=== PATIENT | female | born 1950 | race Caucasian/White ===

== ENCOUNTER 2020-11-04 23:03 | Observation (INO) | payer MEDICARE, OTHER ==
[~2020-11-04] VITALS: Ht 167.6 cm; Wt 77.9 kg
[~2020-11-04 23:03] MED LIST: ACET325 PO; AMLO10 PO; ASPIR 8181 M1 PO; FAMO40 PO; FENO160 PO; GLIP5 PO; HYDACE10B PO; HYDR1TAB94 PO; LIDOCAINE1 EAC1 TOP; LISI20 PO; METF500 PO; SENN187 PO; TRAZ100 PO; TRIA50 PO; ZOCOR20 MG PO
[2020-11-05 01:57] LABS: BASOPHILS ABSOLUTE AUTO 0.03 K/mm3 (0.00-0.23); BASOPHILS PERCENT AUTO 0 % (0-2); EOSINOPHILS ABSOLUTE AUTO 0.07 K/mm3 (0.00-0.68); EOSINOPHILS PERCENT AUTO 1 % (0-6); Hematocrit 35.2 % (33.0-51.0); Hemoglobin 11.7 g/dL (11.5-16.0); IMMATURE GRAN ABSOLUTE AUTO 0.07 K/mm3 (0.00-0.10); IMMATURE GRAN PERCENT AUTO 1 % (0-1); LYMPHOCYTES ABSOLUTE AUTO 2.19 K/mm3 (0.84-5.20); LYMPHOCYTES PERCENT AUTO 21 % (21-46); MONOCYTES ABSOLUTE AUTO 0.67 K/mm3 (0.16-1.47); MONOCYTES PERCENT AUTO 6 % (4-13); Mean Corpuscular HGB 28.7 pg (26.0-34.0); Mean Corpuscular HGB Conc 33.2 g/dL (31.5-36.5); Mean Corpuscular Volume 87 fL (80-100); Mean Platelet Volume 9.1 fL (9.1-12.4); NEUTROPHILS ABSOLUTE AUTO 7.56 K/mm3 (1.96-9.15); NEUTROPHILS PERCENT AUTO 71 % (41-73); Platelet Count 287 K/mm3 (150-400); RDW Coefficient Variation 14.3 % (11.7-14.2); RDW Standard Deviation 45.2 fL (35.1-46.3); Red Blood Cell Count 4.07 M/mm3 (3.80-5.20); White Blood Cell Count 10.59 K/mm3 (4.00-11.30)
[2020-11-05 02:05] LABS: Alanine Aminotransfer (ALT/SGP 31 U/L (12-78); Albumin, Blood 3.9 g/dL (3.4-5.0); Albumin/Globulin Ratio 1.1 (0.8-1.8); Alk Phos 53 U/L (50-136); Anion Gap 11 mmol/L (6-16); Aspartate Aminotrans (AST/SGOT 34 U/L (12-37); Bilirubin, Total 0.7 mg/dL (0.1-1.0); Blood Urea Nitrogen 25 mg/dL (8-24); Bun/Creatinine Ratio 51.7 (12.0-20.0); CO2, Blood 23 mmol/L (21-32); Calcium, Blood 9.5 mg/dL (8.5-10.1); Chloride, Blood 100 mmol/L (98-108); Creatinine, Blood 0.48 mg/dL (0.40-1.00); Globulin, Blood 3.4 g/dL (2.2-4.0); Glomerular Filtration Rate >60 (60-); Glucose, Blood 257 mg/dL (70-99); Potassium, Blood 3.6 mmol/L (3.5-5.5); Sodium, Blood 134 mmol/L (136-145); Total Protein, Blood 7.3 g/dL (6.4-8.2)
--- NOTE | 2020-11-05 03:39 | NUR ---
ADMIT NOTE PT ARRIVED TO PCU FROM ED IN ED WHEELCHAIR AT APPROX 0230. THE PT AMBULATED W/ MINIMAL ASSISTANCE FROM ED WHEELCHAIR TO PCU BED, THOUGH NEEDED ASSISTANCE LIFTING LEGS ONTO BED. PT IS ALERT, ORIENTED TO SELF AND FAMILY. KNEW SHE WAS IN [place] BUT COULD NOT RECALL THE CITY. SP02>92% ON RA. PT MEDICAL STATUS. VSS. PT C/O OF 12/10 L ROTATOR CUFF PAIN. STATES SHE JUST MOVED FROM [place] AND PT STATES "[facility] OUT OF THE SURGERY." SHE IS NOW WANTING THE SURGERY. MEDICATED WITH TORADOL PER EMAR AND PLACED COOLING PAD UNDER SHOULDER. PT CURRENTLY SLEEPING IN ROOM. PT STATES OCCASIONAL INCONTINENCE, C/D ATTENDS IN PLACE. PT ORIENTED TO ROOM, CALL LIGHT IN REACH.
[2020-11-05 05:27] LABS: Source, Urine Clean Catch
[2020-11-05 05:31] LABS: Appearance, Urine Clear (Clear); Bilirubin, Urine Neg (Neg); Blood, Urine Neg (Neg); Color, Urine Yellow (P-Yellow); Glucose Qualitative, Urine 3+ (Neg); Ketones, Urine 2+ (Neg); Leukocyte Esterase, Urine Neg (Neg); Nitrite, Urine Neg (Neg); Protein, Urine 1+ (Neg); Specific Gravity, Urine 1.015 (1.003-1.022); Urobilinogen, Urine NORM (Normal)
[2020-11-05 06:04] LABS: U Amphetamine Screen Not Detected; U Barbituate Screen Not Detected; U Benzodiazapine Screen Not Detected; U Buprenorphine Screen Not Detected; U Cannabinoids Screen Not Detected; U Cocaine Screen Not Detected; U Methadone Screen Not Detected; U Methamphetamine Screen Not Detected; U Opiates Screen DETECTED; U Oxycodone Screen Not Detected; U Phencyclidine Screen Not Detected; U Propoxyphene Screen Not Detected
--- NOTE | 2020-11-05 06:25 | NUR ---
SHIFT SUMMARY PT ALERT, ORIENTED TO SELF.PT CONFUSED. PT DOES NOT FOLLOW DIRECTIONS THE FIRST TIME, TAKES MULTIPLE REPEATING FOR PT TO FOLLOW DIRECTIONS. PT UNSURE OF WHERE SHE WAS, ONLY COULD STATE "[place]". VSS. SP02>92% ON RA. TELEMETRY READS SR W/ BBB, HR 70'S-100'S. PT DID AMBULATE WITH 3 PERSON ASSIST TO BSC TO VOID. PT C/O 12/10 L SHOULDER PAIN. MEDICATED W/ TORADOL PER EMAR. PT ATTEMPTED TO CLIMB OUT OF BED MULTIPLE TIMES WITHOUT TAKING REDIRECTION. CALL PLACED TO MD HICKS. MD HICKS WITH ORDER FOR PEYTON VEST. VEST APPLIED TO PT AT APPROX 0530 FOR PT'S SAFETY. AT APPROX 0630, PT PULLED OUT HER IV AND TOOK OFF HER TELEMETRY BOX/STICKERS. FULL LINEN CHANGE, NEW TELEMETRY STICKERS REAPPLIED. EDUCATED PT WHY SHE NEEDS THESE THINGS AND HOW WE ARE TRYING TO HELP HER AND KEEP HER SAFE. PT CALLED STAFF "RUDE" AND IS AGITATED. CALL LIGHT IN REACH. WILL GIVE REPORT TO ONCOMING NURSE.
--- NOTE | 2020-11-05 07:30 | NUR ---
pt: refusung staying bed refusing keep depends on confused
--- NOTE | 2020-11-05 09:41 | NUR ---
PT GAVE TRANSFORMATION ANALYST PERMISSION FOR CARE ON 11/05/20 AT 0700
--- NOTE | 2020-11-05 18:26 | NUR ---
SHIFT NOTE PT HAS REMAINED IN VEST T/O THE DAY. PT IS ALERT, ANSWERS MOST QUESTIONS APPROPRIATELY BUT QUICKLY FORGETS HER LIMITATIONS AND BECOMES DISORIENTED AND BEGINS ATTEMPTING TO CLIMB OUT OF BED. PT DID HAVE SOME HALLUCINATIONS TODAY FOR A BRIEF PERIOD, PER FAMILY PT DOES HAVE HX OF THIS. PT HAS BEEN PLEASANTLY CONFUSED TODAY.
--- NOTE | 2020-11-06 05:26 | NUR ---
SHIFT SUMMARY XFER'D FROM [facility] @ 5230, REPORT REC FROM PASCUAL AVILA, NO ACUTE CHANGES SINCE ASSUMING CARE, PT SLEPT OFF/ON T/O SHIFT OFTEN MOANING/YELLING OUT "HELP ME" STATES THAT SHE IS PAINFUL- LOCATION CHANGES EVERY TIME PT IS ASKED- HAS STATED L SHOULDER BUT THEN POINTS TO NECK, CHEST, L ABD, BACK, AND "EVERYWHERE"; HAS BEEN INCONT T/O SHIFT REPEATEDLY DISROBING AND THROWING LINNENS OFF BED EVEN WHILE IN PEYTON & SOFT WRISTS, FREQ REPOSITIONS T/O SHIFT, KPAD UNDER BACK, SLEEPING AT THIS TIME, CALL LIGHT IN REACH WHICH PT IS UNABLE TO USE APPROPIATELY, WILL CONT TO MONITOR UNTIL REPORT GIVEN TO DAY RN.
--- NOTE | 2020-11-06 20:03 | NUR ---
ASSUMED CARE RECEIVED REPORT FROM PASCUAL HENRIQUEZ. PT MOVING AROUND IN BED, ATTEMPTING TO CLIMB OUT OF PEYTON VEST. ADJUSTED TO APPROPRIATE POSITION, PT BOOSTED IN BED WITH 2 ASSIST. NO ACUTE NEEDS OR DISTRESS NOTED AT THIS TIME. CALL LIGHT IN REACH. REMOTE MONITORING VERIFIED WITH RUCHI. CONTINUE TO MONITOR.
--- NOTE | 2020-11-06 20:18 | NUR ---
SPOKE TO GAYATRI WREN REGARDING PT'S CONTINUED AGITATION AND ATTEMPTS TO EXIT BED. ORDERS FOR RESTRAINTS RENEWED. WILL CONTINUE TO MONITOR PT BEHAVIOR.
--- NOTE | 2020-11-06 20:28 | NUR ---
SHIFT SUMMARY- PT HAS SCREAMED AND CALLED OUT ALL SHIFT FROM START TO FINISH WITH ABOUT A 1.5 HOUR NAP AFTER SOME PO ATIVAN THIS EVENING. SOON HER SON LEFT SHE BEGAN SCREAMING AND CALLING OUT AGAIN. PT IV AND TELE DC'D EARLIER TODAY AND THE LEFT WRIS RESTRAINT WAS ABL TO BE DC'D. DR AWARE PT RIGHT WRIST RESRAINT HAS TO REMAIN SHE USES IT TO GET OUT OF THE PEYTON VEST. PT ORIENTED T HER NAME AND FAMILY. PASSED ON IN REPORT TO NIGHT PASCUAL MIRANDA IN BEDSIDE REPORT.
--- NOTE | 2020-11-07 04:26 | NUR ---
SHIFT SUMMARY PT LYING IN BED, MOANING AND CRYING OUT INTERMITTENTLY. HAS BEEN MONITORED EVERY 1-2 HOURS WITH NEEDS MET. MEDICATED FOR AGITATION PER EMAR, PT APPEARED TO BE ABLE TO SLEEP FOR A FEW HOURS AFTERWARDS. PAIN MANAGED WITH MEDS, SCHEDULED AND PRN, WITH MODERATE RELIEF. VS REVIEWED, WNL. RESTRAINTS IN PLACE ORDERED. NO ACUTE NEEDS NOTED AT THIS TIME. CALL LIGHT, POSSESSIONS IN REACH, BED IN LOW POSITION. WILL CONTINUE TO MONITOR UNTIL REPORT GIVEN TO DAY RN.
--- NOTE | 2020-11-07 16:26 | NUR ---
SHIFT SUMMARY PT YELLING OUT AT START OF SHIFT, WITH EYES CLOSED. PT IN PEYTON VEST RESTRAINT FOR SAFETY. PT ALSO INCONTINENT OF BOWEL AND BLADDER. MULTIPLE BED CHANGES DONE TO PRESENT JUST THIS SHIFT. PT REFUSING TO WEAR ANY CLOTHES, ATTENDS, OR PULL UPS AT ALL. IMMEDIATELY PULLS THEM OFF AND ANY LINEN PLACED UNDER HER WELL. PT ABLE TO TAKE MEDICATIONS AND EAT HER MEALS W/O DIFFICULTY, EVEN WITH EYES CLOSED. PT DID OPEN HER EYES BRIEFLY TO WORDS FROM HER SON, WHEN HE WAS IN RM TALKING TO HER. ATIVAN GIVEN THIS AM FOR RESTLESSNESS AND AGITATION. PT ABLE TO REST FOR A WHILE, BUT HAS BEEN RESTLESS AND AGITATED AGAIN THIS AFTERNOON. PT'S SON REQUESTING PT BE GIVEN MORE ATIVAN IF AVAILABLE. TYLENOL ALSO GIVEN FOR L SHOULDER PAIN. PT REPOSITIONED AND SON SITTING IN RM AT BS. CALL LT IN REACH.
--- NOTE | 2020-11-07 19:05 | NUR ---
ASSUMED CARE REPORT RECEIVED FROM PASCUAL TALLEY. PT RESTING IN BED, MOANING OCCASIONALLY. NO ACUTE NEEDS OR DISTRESS NOTED AT THIS TIME. CALL LIGHT, POSSESSIONS IN REACH, BED IN LOW POSITION. CONTINUE TO MONITOR.
--- NOTE | 2020-11-08 05:05 | NUR ---
SHIFT SUMMARY PT LYING IN BED, NO S/S ACUTE DISTRESS NOTED. WAS MONITORED EVERY 1-2 HOURS WITH NEEDS MET. PAIN MANAGED WITH MEDS PER EMAR. CONTINUES TO MOAN INTERMITTENTLY, CRYING OUT OCCASIONALLY; ALERT TO SELF. CONTINUES TO REMOVE CHUX PADS BENEATH HER. VS REVIEWED, WNL, BP'S STABLE. LT SHOULDER GUARDING NOTED AT TIMES, BUT PT ABLE TO MOVE LUE. NO ACUTE NEEDS ASSESSED AT THIS TIME. PT CONTINUES ON REMOTE MONITORING. BED IN LOW POSITION, WILL CONTINUE TO MONITOR UNTIL REPORT GIVEN TO DAY RN.
--- NOTE | 2020-11-08 18:17 | NUR ---
SHIFT SUMMARY PT SLEEPING AT START OF SHIFT, RESTING CALMLY. PT NOT WANTING TO EAT MUCH OF HER BREAKFAST AT ALL TODAY. PT MORE DROWSY. PT DID EAT A LITTLE MORE OF LUNCH AND ALL OF DINNER. PT YELLING OUT ALOT MORE THOUGH TODAY. INCONTINENT OF BOWEL AND BLADDER AGAIN MULTIPLE TIMES. COMPLETE BED CHANGES EVERY TIME THRU OUT THE DAY. PT ABLE TO UNTIE VEST RESTRAINTS A COUPLE OF TIMES AND GET TO EOB WITH FEET ON FLOOR. PT CONTINUES TO KEEP HER EYES MOSTLY CLOSED AT ALL TIMES. OPENS THEM ONLY FOR A BREIF MOMENT AND ONLY A COUPLE OF TIMES THE ENTIRE SHIFT. PT WILL ANS A YES/NO QUESTION ONCE IN A WHILE, BUT OTHERWISE DOES NOT COMMUNICATE. PT'S SON TO RM TO VISIT AGAIN TODAY. PT WAKES BRIEFLY TO ACKNOWLGE SON TALKING TO HER, BUT DOES NOT TALK TO HIM EITHER. VSS; SEE CHART. DR LAWRENCE HERE TO SEE PT THIS AM. INSULIN COVERAGE ADJUSTED; SEE CHART. ALARM ON FOR SAFETY. CALL LT IN REACH.
--- NOTE | 2020-11-08 19:10 | NUR ---
ASSUMED CARE RECEIVED REPORT FROM PASCUAL TALLEY. PT LYING IN BED, RT ARM TANGLED UP IN PEYTON VEST, CRYING OUT. UNTANGLED RT ARM AND RE-TIED RT SIDE OF VEST. PT APPEARS MORE COMFORTABLE NOW, ALTHOUGH CONTINUES TO MOAN AND CRY OUT. NO OTHER ACUTE NEEDS ASSESSED AT THIS TIME. BED IN LOW POSITION, SR UP X4. CONTINUE TO MONITOR.
--- NOTE | 2020-11-09 04:16 | NUR ---
SHIFT SUMMARY PT ASLEEP AT THIS TIME, NO ACUTE NEEDS OR DISTRESS NOTED. WAS MONITORED EVERY 1-2 HOURS WITH NEEDS MET. INCREASINGLY ALERT, SPEAKING IN [place], NON-SENSICAL SENTENCES. CONTINUES TO MOAN OCCASIONALLY, RE-DIRECTABLE. PEYTON VEST REMAINS IN PLACE D/T PT ATTEMPTING TO EXIT BED. NO S/S PAIN. CALL LIGHT, POSSESSIONS IN REACH, BED IN LOW POSITION. CONTINUE TO MONITOR UNTIL REPORT GIVEN TO DAY RN.
[2020-11-09 16:22] LABS: Hematocrit 33.3 % (33.0-51.0); Hemoglobin 10.5 g/dL (11.5-16.0); Mean Corpuscular HGB 28.1 pg (26.0-34.0); Mean Corpuscular HGB Conc 31.5 g/dL (31.5-36.5); Mean Corpuscular Volume 89 fL (80-100); Mean Platelet Volume 9.6 fL (9.1-12.4); Platelet Count 259 K/mm3 (150-400); RDW Standard Deviation 48.7 fL (35.1-46.3); Red Blood Cell Count 3.74 M/mm3 (3.80-5.20); White Blood Cell Count 9.51 K/mm3 (4.00-11.30)
[2020-11-09 16:58] LABS: Albumin, Blood 3.3 g/dL (3.4-5.0); Anion Gap 10 mmol/L (6-16); Blood Urea Nitrogen 41 mg/dL (8-24); Bun/Creatinine Ratio 60.1 (12.0-20.0); CO2, Blood 21 mmol/L (21-32); Chloride, Blood 112 mmol/L (98-108); Creatinine, Blood 0.68 mg/dL (0.40-1.00); Glomerular Filtration Rate >60 (60-); Glucose, Blood 154 mg/dL (70-99); Phosphorus, Blood 3.3 mg/dL (2.5-4.9); Potassium, Blood 3.3 mmol/L (3.5-5.5); Sodium, Blood 143 mmol/L (136-145)
--- NOTE | 2020-11-09 19:20 | NUR ---
SHIFT SUMMARY PT IS AO TO SELF, BUT MORE TALKATIVE TODAY. PT MEDICATED FOR PAIN X1 PER EMAR. PT STILL CALLS OUT, DISROBES, AND TRIES TO GET OUT OF THE BED/CHAIR. POSY VEST AND SIDERAILS X4 CURRENTLY IN PLACE. PT UP IN CHAIR X1 THIS SHIFT. PT IS 2 PERSON ASSIST FOR TRANSFERS. PLAN IS TO DC [facility]. PT'S SON VISITED THIS DUNIA. PT ENCOURAGED TO HYDRATE DURING ROUNDS TODAY. PT CURRENTLY IN BED, CALL LIGHT IN REACH,ALARM ON WITH BED LOWERED.
--- NOTE | 2020-11-10 00:38 | NUR ---
PT RESTRAINTS DISCONTINUED PT RESTRAINTS AT 1999. PT WAS NOT ATTEMPTING TO GET OUT OF BED AND SHE IS NOT PULLING ON LINES.
--- NOTE | 2020-11-10 04:02 | NUR ---
SHIFT SUMMARY ASSUMED CARE OF PT AT 1900. PT IS ALERT AND ONLY ORIENTED TO SELF AND FAMILY. PT REQUESTED TO CALL SON DUE TO CONFUSION. PT ATTEMPTED TO GET OUT OF BED MULTPILES TIMES TO USE THE BATHROOM. PT HAD HARD STOOLS T/O THE NIGHT. PT WAS INCONTINENT AT TIMES. PT WAS INCONTIENT OF URINE T/O THE NIGHT. PT C/O PAIN IN HER SHOULDER T/O THE NIGHT. MEDICATIONS ON EMAR DID NOT RELEIVE PATIENTS PAIN. PT L ARM IS CONTRACTED. PT IS A 1P SBA TO BSC. HEART SOUNDS REGULAR, LUNG SOUNDS CLEAR. CALL LIGHT IN REACH, BED IN LOWEST POSTION, BED ALARM ON, CAMERA MONITORING.
[2020-11-10 05:34] LABS: Albumin, Blood 2.8 g/dL (3.4-5.0); Anion Gap 8 mmol/L (6-16); Blood Urea Nitrogen 29 mg/dL (8-24); Bun/Creatinine Ratio 55.8 (12.0-20.0); CO2, Blood 22 mmol/L (21-32); Chloride, Blood 111 mmol/L (98-108); Creatinine, Blood 0.52 mg/dL (0.40-1.00); Glomerular Filtration Rate >60 (60-); Glucose, Blood 171 mg/dL (70-99); Phosphorus, Blood 2.7 mg/dL (2.5-4.9); Potassium, Blood 3.4 mmol/L (3.5-5.5); Sodium, Blood 141 mmol/L (136-145)
--- NOTE | 2020-11-10 17:26 | NUR ---
SHIFT SUMMARY PATIENT MEDICATD SCHEDULED FOR PAIN. DENIES NAUSEA AND SHORTNESS OF BREATH. UP SBA TO BSC. EATING AND DRINKING WELL THIS AFTERNOON. SON VISITED IN AFTERNOON. PATIENT HAD SEVERAL STOOLS THIS SHIFT. MUCH MORE ALERT THIS AFTERNOON THAN IN THE AM.
--- NOTE | 2020-11-10 21:08 | NUR ---
PT SHOWING CONFUSION, NURSE NOTIFIED
[2020-11-11] MEDS ORDERED: ESCI10 PO (04:00)
[2020-11-11] MEDS ORDERED: Flonase 0.05% N16 GM (04:00)
[2020-11-11] MEDS ORDERED: Dyazide 37.5/251 EA PO (04:02)
[2020-11-11 05:12] LABS: Albumin, Blood 2.9 g/dL (3.4-5.0); Anion Gap 8 mmol/L (6-16); Blood Urea Nitrogen 14 mg/dL (8-24); Bun/Creatinine Ratio 30.6 (12.0-20.0); CO2, Blood 21 mmol/L (21-32); Calcium, Blood 7.9 mg/dL (8.5-10.1); Chloride, Blood 118 mmol/L (98-108); Creatinine, Blood 0.46 mg/dL (0.40-1.00); Glomerular Filtration Rate >60 (60-); Glucose, Blood 118 mg/dL (70-99); Phosphorus, Blood 2.1 mg/dL (2.5-4.9); Potassium, Blood 3.6 mmol/L (3.5-5.5); Sodium, Blood 147 mmol/L (136-145)
--- NOTE | 2020-11-11 06:31 | NUR ---
SHIFT SUMMARY PT IS A 69 Y/O FEMALE, ADMITTED FOR ACUTE ENCEPHALOPATHY. SHE IS A&O X SELF ONLY, WITH MILD NONSENSICAL SPEECH WHILE ON SEDITATIVE MEDICATIONS. PT IS CONTINENT/INCONTINENT, 1PA TO THE BSC. PT HAD MULTIPLE EPISODES OF INCONTINENT URINE DURING THE NIGHT. PT RECEIVED NS + K @ 125 ML/HR UNTIL APPROXIMATELY 0530, WHEN PT'S IV WAS ACCIDENTALLY REMOVED. UNABLE TO REPLACE IT AT THIS TIME, WILL PASS ON TO DAY SHIFT. VITAL SIGNS STABLE. PT DID MOAN AND CRY OUT AT TIMES WHEN WET, AND C/O PAIN IN HER L SHOULDER WITH LLE MOVEMENT. NO C/O NAUSEA OR SOB. NO OTHER ACUTE CHANGES IN PT CONDITION NOTED. WILL CONTINUE TO MONITOR AND TREAT PER EMAR UNTIL HAND OFF TO DAY SHIFT RN.
--- NOTE | 2020-11-11 18:13 | NUR ---
SHIFT SUMMARY MEDICATED X2 FOR PAIN AND X1 FOR ANXIETY DURING MRI. DENIES NAUSEA AND SHORTNESS OF BREATH. UP SBA TO 1X TO BATHROOM. PATIENT REPORTS LEG CRAMPS AND BURNING WITH URINATION DURING THIS SHIFT. PATIENT PLEASANTLY CONFUSED, VERY IMPULSIVE AND CLIMBS OUT OF BED FREQUENTLY. MRI OF SHOULDER UNABLE TO BE COMPLETED BECAUSE PATIENT ATTEMPTED TO CLIMB OUT OF MRI MACHINE DURING SCAN. PATIENT EATING AND DRINKING WELL. SON MONCHO VISITED IN AFTERNOON.
--- NOTE | 2020-11-11 21:39 | NUR ---
1934 PT NOTED TO BE JUMPING OUT OOB NUMEROUS TIMES X 4; PT HAS DIFFICULTY FOLLOWING REDIRECTIONS; PT IS ON REMOTE CAMERA. ALERT X 1 ONLY. 2044 PTS BED CHANGED BED ALARM CONSTANLY ALARMED; PTS OLD BED WAS ICU SPECIALITY BED. 2136 DR RICE NOTIFIED PT CONTINUING JUMP OOB GAIT VERY UNSTEADY; PT ALERT X 1 ONLY; PEYTON VEST APPLIED.
--- NOTE | 2020-11-12 03:22 | NUR ---
SHIFT SUMMARY: 69 Y/O FEMALE HAD VERY RESTLESS NIGHT ALL SHIFT WITH MINIMAL SLEEP NOTED; PT ATTEMPTED CLIMB OOB NUMEROUS TIMES AND WAS UNABLE FOLLOW ANY DIRECTIONS FROM STAFF; PT REQUIRED PEYTON VEST FOR SAFETY; PT WAS GIVEN SEROQUEL 25MG PO, ATIVAN 1MG PO AND ZYPREXA 5MG PO WITH MINIMAL EFFECT EXCEPT MAKE PATIENT SLIGHTLY DROWSY; PT IS ALERT TO PERSON ONLY WITH SPEECH SLURRED; PT C/O LEFT ARM DISCOMFORT AT TIMES WITH TYLENOL 325MG PO GIVEN WITH SLIGHT RELIEF NOTED; PT ALSO HAD HEATING PAD APPLIED TO LEFT SHOULDER/BACK WHICH SHE REPEATLY REMOVED AND TOSSED ONTO FLOOR; PT ON REMOTE CAMERA OBSERVATION, BED ALARM APPLIED FOR SAFETY, BED LOW POSITION WITH CALL LIGHT AT SIDE.
[2020-11-12 08:29] LABS: BASOPHILS ABSOLUTE AUTO 0.03 K/mm3 (0.00-0.23); BASOPHILS PERCENT AUTO 0 % (0-2); EOSINOPHILS ABSOLUTE AUTO 0.22 K/mm3 (0.00-0.68); EOSINOPHILS PERCENT AUTO 3 % (0-6); Hematocrit 33.6 % (33.0-51.0); Hemoglobin 10.9 g/dL (11.5-16.0); IMMATURE GRAN ABSOLUTE AUTO 0.04 K/mm3 (0.00-0.10); IMMATURE GRAN PERCENT AUTO 1 % (0-1); LYMPHOCYTES ABSOLUTE AUTO 2.39 K/mm3 (0.84-5.20); LYMPHOCYTES PERCENT AUTO 31 % (21-46); MONOCYTES ABSOLUTE AUTO 0.59 K/mm3 (0.16-1.47); MONOCYTES PERCENT AUTO 8 % (4-13); Mean Corpuscular HGB 28.6 pg (26.0-34.0); Mean Corpuscular HGB Conc 32.4 g/dL (31.5-36.5); Mean Corpuscular Volume 88 fL (80-100); Mean Platelet Volume 9.1 fL (9.1-12.4); NEUTROPHILS ABSOLUTE AUTO 4.37 K/mm3 (1.96-9.15); NEUTROPHILS PERCENT AUTO 57 % (41-73); Platelet Count 319 K/mm3 (150-400); RDW Coefficient Variation 14.6 % (11.7-14.2); RDW Standard Deviation 46.9 fL (35.1-46.3); Red Blood Cell Count 3.81 M/mm3 (3.80-5.20); White Blood Cell Count 7.64 K/mm3 (4.00-11.30)
[2020-11-12 08:59] LABS: Alanine Aminotransfer (ALT/SGP 43 U/L (12-78); Albumin, Blood 3.1 g/dL (3.4-5.0); Albumin/Globulin Ratio 0.9 (0.8-1.8); Alk Phos 53 U/L (50-136); Anion Gap 9 mmol/L (6-16); Aspartate Aminotrans (AST/SGOT 34 U/L (12-37); Bilirubin, Total 0.5 mg/dL (0.1-1.0); Blood Urea Nitrogen 10 mg/dL (8-24); Bun/Creatinine Ratio 21.5 (12.0-20.0); CO2, Blood 23 mmol/L (21-32); Calcium, Blood 8.9 mg/dL (8.5-10.1); Chloride, Blood 113 mmol/L (98-108); Creatinine, Blood 0.47 mg/dL (0.40-1.00); Globulin, Blood 3.4 g/dL (2.2-4.0); Glomerular Filtration Rate >60 (60-); Glucose, Blood 157 mg/dL (70-99); Magnesium, Blood 1.7 mg/dL (1.6-2.4); Phosphorus, Blood 3.2 mg/dL (2.5-4.9); Potassium, Blood 3.6 mmol/L (3.5-5.5); Sodium, Blood 145 mmol/L (136-145); Thyroid Stimulating Hormone 0.596 uIU/mL (0.360-4.800); Total Protein, Blood 6.5 g/dL (6.4-8.2)
[2020-11-12 12:17] LABS: Appearance, Urine Cloudy (Clear); Bilirubin, Urine Neg (Neg); Blood, Urine 1+ (Neg); Color, Urine Yellow (P-Yellow); Glucose Qualitative, Urine 4+ (Neg); Ketones, Urine 1+ (Neg); Leukocyte Esterase, Urine 2+ (Neg); Nitrite, Urine Neg (Neg); Protein, Urine 1+ (Neg); Source, Urine Clean Catch; Urobilinogen, Urine 1+ (Normal)
[2020-11-12 12:30] LABS: Bacteria Many /hpf; Squamous Epithelial Cells Not Seen /hpf (Few)
--- NOTE | 2020-11-12 17:45 | NUR ---
SHIFT SUMMARY URINE COLLECTED VIA STRAIGHT CATH DUE TO INCONTINENCE. PT WAS ABLE TO BE CONT ONCE THIS AFTERNOON AFTER WALKING TO THE TOILET. AMBULATING WELL WITH MODERATE ASSIST. 1-2P REQUIRED. MRI COMPLETED THIS SHIFT. ONE TIME DOSE OF ATIVAN GIVEN TO HELP WITH CLASTROPHOBIA. PT GAURDING L ARM T/O SHIFT. MEDICATED FOR PAIN TWICE TODAY. ABCESS ON R GRION FOLD CULTURED. PURLENT FLUID DRAINAGE & OPENING NOW CRUSTED OVER. PICTURE TAKEN. PT VERY CONFUSED T/O MOST THIS DAY. MOMENTS OF CLEARITY. VS REVIEWED. NO OTHER ACUTE CHANGES IN ASSESSMENT AT THIS TIME.
--- NOTE | 2020-11-12 21:04 | NUR ---
2000 PT SITTING UP IN CHAIR WITH PEYTON VEST INTACT; PT ALERT AND ORIENTED X 1 WITH THOUGHT PROCESS DISORGANIZED AND MUMBLING INCOHERENTLY TO SELF DURING ASSESSMENT.
--- NOTE | 2020-11-13 03:27 | NUR ---
SHIFT SUMMARY: 69 Y/O [place] FEMALE SLEPT BEDSIDE CHAIR ENTIRE SHIFT FOR COMFORT (PT DECLINED TO SLEEP IN BED WHEN OFFERED MULTIPLE TIMES BY STAFF); PT ALERT TO SELF ONLY WITH DISORGANIZED THOUGHT PROCESS NOTED WITH INCOHERENT MUMBLING WORDS TO SELF AT TIMES; PT WAS GIVEN ZYPREXA 5MG AND ATIVAN 1MG PO WHICH HELPED PT TO CONTROL HER EMOTIONS WITH NO YELLING OUTBURSTS NOTED THIS SHIFT; PT WAS ALSO GIVEN TYLENOL 650MG PO FOR LEFT SHOULDER DISCOMFORT AFTER GRIMACING NOTED PRIOR TO MEDICATION BEING GIVEN; PEYTON VEST MAINTAINED FOR SAFETY; CHAIR ALARM APPLIED WITH CALL LIGHT AT SIDE.
--- NOTE | 2020-11-13 17:02 | NUR ---
SHIFT SUMMARY PT TAKEN OUT OF RESTRAINTS AT 0954 TODAY. PT CONTINUES TO BE IMPULSIVE AND FORGETS TO CALL WHEN TRANSFERING. HOWEVER, CHAIR & BED ALARMS ARE SUFFICIENT FOR SAFETY AT THIS TIME. PT SEEN BY [facility]O FOR HER L SHOULDER. ULTRASOUND OF THE JOINT ORDERED FOR BETTER VIEW. PHYSICAL THERAPY CONTINUES TO WORK WITH PT ON GENERAL MOBILITY AND SPECIFICALLY THE L SHOULDER. PT EATING WELL & TAKING IN FLUIDS. TREATED WITH ABX ORDERED T/O DAY. PT VISITED WITH HER SON IN ROOM FOR A FEW HOURS THIS AFTERNOON. PT CURRENTLY UP IN RECLINER, SLEEPING. RECLINER SEEMS TO BE THE MOST COMFORTABLE TO THE PT. NO OTHER ACUTE CHANGES IN ASSESSMENT AT THIS TIME. VS REVIEWED. CALL LIGHT IN REACH.
--- NOTE | 2020-11-13 19:40 | NUR ---
PT UP WANDERING AROUND ZARATE WITH GAIT VERY UNSTEADY WITHOUT WALKER REFUSING TO SIT DOWN SHE VOICED ITS TIME FOR HER DEPART [facility] VIA PLANE; PT ESCORTED BACK TO BED AND PLACED IN PEYTON VEST FOR SAFETY; DR HICKS NOTIFIED WITH ORDERS FOR PEYTON VEST.
--- NOTE | 2020-11-14 03:34 | NUR ---
SHIFT SUMMARY: 69 Y/O FEMALE HAD RESTLESS NIGHT ALL SHIFT; PT REQUIRED PEYTON VEST AT BEGINNING SHIFT STAFF WAS UNABLE TO REDIRECT PT SHE WAS UP AMBULATING AROUND IN HALLWAY WITH GAIT VERY UNSTEADY WITHOUT WALKER; PT ALERT AND ORIENTED X 1, ABLE TO FOLLOW SIMPLE VERBAL COMMANDS; PT C/O LEFT ARM PAIN 05/08 WITH TYLENOL 500MG AND 650MG PO X 1 GIVEN WITH RELIEF FELT; PT CONTINUES TO BE INCONTIENT AND CONTINENT URINE THROUGHOUT SHIFT; PT OVERALL IS CALM AND NEVER COMBATIVE WITH STAFF; PTS BED/CHAIR ALARM APPLIED, BED LOW POSITION WITH CALL LIGHT AT SIDE.
[2020-11-14 05:11] LABS: Hematocrit 31.7 % (33.0-51.0); Hemoglobin 9.8 g/dL (11.5-16.0); Mean Corpuscular HGB 27.8 pg (26.0-34.0); Mean Corpuscular HGB Conc 30.9 g/dL (31.5-36.5); Mean Corpuscular Volume 90 fL (80-100); Mean Platelet Volume 9.3 fL (9.1-12.4); Platelet Count 361 K/mm3 (150-400); Red Blood Cell Count 3.52 M/mm3 (3.80-5.20); White Blood Cell Count 6.66 K/mm3 (4.00-11.30)
[2020-11-14 05:31] LABS: Albumin, Blood 3.1 g/dL (3.4-5.0); Anion Gap 5 mmol/L (6-16); Blood Urea Nitrogen 19 mg/dL (8-24); Bun/Creatinine Ratio 31.5 (12.0-20.0); CO2, Blood 26 mmol/L (21-32); Calcium, Blood 8.6 mg/dL (8.5-10.1); Chloride, Blood 112 mmol/L (98-108); Glomerular Filtration Rate >60 (60-); Glucose, Blood 186 mg/dL (70-99); Phosphorus, Blood 3.3 mg/dL (2.5-4.9); Sodium, Blood 143 mmol/L (136-145)
--- NOTE | 2020-11-14 18:42 | NUR ---
SHIFT SUMMARY PT UP IN CHAIR MOST OF THE DAY. RESTRAINTS REMOVED THIS MORNING AT 0800. HAS GOTTEN UP SEVERAL TIMES THROUGHOUT DAY AND ALARMS HAVE BEEN SET OFF BUT HAS BEEN REDIRECTABLE AND COOPERATIVE. ALSO IN HALLWAY IN HER CHAIR WITH STAFF. SON CAME TO VISIT THIS AFTERNOON AND PT TOOK A SHORT NAP.
--- NOTE | 2020-11-15 03:27 | NUR ---
PATIENT IS PLEASANT HOWEVER CONFUSED AND DISORIENTED. SHE OCCASIONALLY IS NOTED PICKING AT SOMETHING/THINGS THAT ARE NOT PRESENT. SHE HAS BEEN UP SEVERAL TIMES TONIGHT, GETTING OUT OF BED ON HER OWN AND HAVING NO DIRECTION MOST OF THE TIMES. THIS LAST TIME SHE DID ASK FOR SOME PAIN MEDICATION SO I DID GIVE HER PRN TYLENOL PER EMAR. I ALSO ADMINISTERED SOME ZYPREXA TO SEE IF IT WILL ASSIST WITH PROVIDING A LESS RESTLESS NIGHT. BP WAS ELEVATED WITH MOST RECENT VITALS CHECK, BUT SHE WAS ALSO IN PAIN AT THIS TIME. PATIENT LAID BACK DOWN AFTER TAKING HER MEDICATION. CALL LIGHT WITHIN REACH.
--- NOTE | 2020-11-15 07:31 | NUR ---
ABSCESS SITE TO R GROIN APPEARS TO BE HEALING WELL. NO REDNESS OR SWELLING AT SITE. NO PAIN AT SITE.
--- NOTE | 2020-11-15 17:37 | NUR ---
SHIFT SUMMARY PT COOPERATIVE THROUGH THE DAY. WOULD CALL APPROPRIATELY WHEN SON NOT IN ROOM. DRINKING FLUIDS WELL. SON HERE TO VISIT IN THE AFTERNOON. MENTATION IMPROVED OVER YESTERDAY.
--- NOTE | 2020-11-15 23:33 | NUR ---
PATIENT HAS NOT BEEN TO SLEEP AT ALL TONIGHT. SHE HAS BEEN UP WALKING AROUND HER ROOM. SHE HAS BEEN STEADY ON HER FEET, BUT REMAINS CONFUSED.
--- NOTE | 2020-11-16 03:30 | NUR ---
PATIENT IS PLEASANTLY CONFUSED. DOESN'T SLEEP MUCH AT ALL. AMBULATES PRETTY STEADILY. VITALS STABLE WITH SLIGHTLY ELEVATED BP. STARTED ON PO ABX WITHOUT S/SX OF ADVERSE REACTIONS NOTED OR REPORTED. PATIENT APPEARS TO BE ASLEEP IN HER BED AT THIS TIME. NO ACUTE CHANGES NOTED OR REPORTED THIS SHIFT. CALL LIGHT WITHIN REACH.
[2020-11-16 08:20] LABS: Hematocrit 31.6 % (33.0-51.0); Hemoglobin 9.7 g/dL (11.5-16.0); Mean Corpuscular HGB 28.4 pg (26.0-34.0); Mean Corpuscular HGB Conc 30.7 g/dL (31.5-36.5); Mean Corpuscular Volume 92 fL (80-100); Mean Platelet Volume 9.2 fL (9.1-12.4); Platelet Count 347 K/mm3 (150-400); RDW Coefficient Variation 15.2 % (11.7-14.2); RDW Standard Deviation 50.4 fL (35.1-46.3); Red Blood Cell Count 3.42 M/mm3 (3.80-5.20); White Blood Cell Count 6.25 K/mm3 (4.00-11.30)
[2020-11-16 08:38] LABS: Albumin, Blood 3.1 g/dL (3.4-5.0); Anion Gap 5 mmol/L (6-16); Blood Urea Nitrogen 19 mg/dL (8-24); Bun/Creatinine Ratio 30.7 (12.0-20.0); CO2, Blood 26 mmol/L (21-32); Calcium, Blood 8.6 mg/dL (8.5-10.1); Chloride, Blood 113 mmol/L (98-108); Creatinine, Blood 0.62 mg/dL (0.40-1.00); Glomerular Filtration Rate >60 (60-); Glucose, Blood 129 mg/dL (70-99); Phosphorus, Blood 3.6 mg/dL (2.5-4.9); Potassium, Blood 4.1 mmol/L (3.5-5.5); Sodium, Blood 144 mmol/L (136-145)
--- NOTE | 2020-11-16 19:15 | NUR ---
SHIFT SUMMARY: NO ACUTE CHANGES TO REPORT THIS SHIFT. PT A&O X2; CALM AND COOPERATIVE WITH CARE. SCHEDULED PAIN MEDS PER EMAR. REMOTE MONITORING STOPPED THIS SHIFT; PT SBA IN ROOM. EXPECTED D/C HOME WITH SON. REPORT GIVEN TO ONCOMING RN.
[2020-11-16 23:09] LABS: MMA - NORMALIZED 1.3 (0.5-3.4)
--- NOTE | 2020-11-17 05:26 | NUR ---
SHIFT SUMMARY NO ACUTE EVENTS THIS SHIFT. PT CALLS APPROPRIATELY, SBA WHEN UP. MEDICATED X1 WITH SCHEDULED TYLENOL, PT STATES SHE DOESN'T HAVE ANY PAIN. NO OTHER COMPLAINTS THIS SHIFT, SLEPT WELL T/O NIGHT. PT IS LAYING IN BED WITH EYES CLOSED, EVEN AND UNLABORED RESPIRATIONS. BED IN LOWERED POSITION WITH CALL LIGHT AND PERSONAL ITEMS WITH IN REACH. NO APPARENT NEEDS OR DISTRESS AT THIS TIME, WILL CONTINUE TO MONITOR UNTIL REPORT GIVEN TO DAY RN.
[2020-11-17 06:07] LABS: CHOL/HDL RATIO 2.1; Cholesterol 133 mg/dL (50-200); HDL Cholesterol 64 mg/dL (>39); LDL/HDL RATIO 0.6; Low Density Lipoprotein Chol 40 mg/dL (0-110); Triglycerides 145 mg/dL (30-160); Very Low Density Lipoprot Chol 29 mg/dL (6-32)
[2020-11-17] MEDS ORDERED: CITA20 PO (15:26)
[2020-11-17] MEDS ORDERED: CIPR500 PO (15:27)
[2020-11-17] MEDS ORDERED: LANTUS SOL100 UNIT/1 SC (15:29)
[2020-11-17] MEDS ORDERED: HUMALOG KW100 UNIT/1 (15:31)
[2020-11-17] MEDS ORDERED: LISI20 PO (15:31)
[2020-11-17] MEDS ORDERED: VISBIOME PROBI1 EACH PO (15:33)
[2020-11-17] MEDS ORDERED: QUET25 PO (15:33)
--- NOTE | 2020-11-17 16:32 | NUR ---
DISCHARGE NOTE PT DISCHARGED TO HOME WITH SON. PT AND SON EDUCATED ON ALL DISCHARGE INFORMATION, ALL QUESTIONS ANSWERED. NO IV PRESENT AT DISCHARGE, BELONINGS RETURNED. PT AND SON AGREE TO ESTABLISH PCP, TAKE MEDICATIONS PRESCRIBED. PT LEFT ROOM VIA WHEELCHAIR WITH PLY CUTTER ESCORT PRIOR TO THIS NOTE.
== END 2020-11-17 16:27 | disposition home health service (06) ==
LOC: ER 23:03 → MEDS 23:04 → PCU 23:04 → MEDS 11-05 22:46
PROVIDERS: Internal Medicine; Pharmacist; ADMIT Internal Medicine
DX: G92 Toxic encephalopathy (principal); G30.9 Alzheimer's disease, unspecified; F02.81 Dementia in other diseases classified elsewhere, unspecified severity, with behavioral disturbance; E86.0 Dehydration; S46.002A Unspecified injury of muscle(s) and tendon(s) of the rotator cuff of left shoulder, initial encounter; X58.XXXA Exposure to other specified factors, initial encounter; L02.214 Cutaneous abscess of groin; B95.2 Enterococcus as the cause of diseases classified elsewhere; R26.81 Unsteadiness on feet; I10 Essential (primary) hypertension; E11.65 Type 2 diabetes mellitus with hyperglycemia; Z23 Encounter for immunization; E78.5 Hyperlipidemia, unspecified; K21.9 Gastro-esophageal reflux disease without esophagitis; Z86.73 Personal history of transient ischemic attack (TIA), and cerebral infarction without residual deficits; Z91.018 Allergy to other foods; Z79.84 Long term (current) use of oral hypoglycemic drugs; Z79.899 Other long term (current) drug therapy; Z79.82 Long term (current) use of aspirin
CPT/HCPCS: 36415; 70450; 71045; 73030; 73223; 76882; 80053; 80061; 80069; 81001; 82140; 82550; 82553; 82607; 82746; 82947; 83036; 83090; 83735; 83921; 84100; 84443; 84484; 85025; 85027; 85651; 87070; 87075; 87077; 87086; 87186; 87205; 93005; 93010; 93306; 96365; 96366; 96367; 96372; 96374; 96375; 96376; 97110; 97110-CO; 97116; 97116-CQ; 97162; 97165; 97530; 97530-CQ; 97535; 97535-CO; 99284-25; 99285-25; A9270; A9579; C1751; G0008; G0378; J0360; J0696; J1650; J1815; J1885; J2060; J2405; J2543; J3010; J3301; J3370; J3480; J7030; J7050; J7060; Q2038

== ENCOUNTER 2020-11-25 09:21 | Emergency (ER) | payer MEDICARE, OTHER ==
[~2020-11-25] VITALS: Ht 167.6 cm; Wt 79.4 kg
[~2020-11-25 09:21] MED LIST changes: +CIPR500 PO; +CITA20 PO; +Dyazide 37.5/251 EA PO; +ESCI10 PO; +Flonase 0.05% N16 GM; +HUMALOG KW100 UNIT/1; +LANTUS SOL100 UNIT/1 SC; +QUET25 PO; +VISBIOME PROBI1 EACH PO
[2020-11-25 11:03] LABS: BASOPHILS ABSOLUTE AUTO 0.04 K/mm3 (0.00-0.23); BASOPHILS PERCENT AUTO 0 % (0-2); EOSINOPHILS ABSOLUTE AUTO 0.99 K/mm3 (0.00-0.68); EOSINOPHILS PERCENT AUTO 11 % (0-6); Hematocrit 34.7 % (33.0-51.0); IMMATURE GRAN ABSOLUTE AUTO 0.01 K/mm3 (0.00-0.10); IMMATURE GRAN PERCENT AUTO 0 % (0-1); LYMPHOCYTES ABSOLUTE AUTO 1.85 K/mm3 (0.84-5.20); LYMPHOCYTES PERCENT AUTO 20 % (21-46); MONOCYTES ABSOLUTE AUTO 0.43 K/mm3 (0.16-1.47); MONOCYTES PERCENT AUTO 5 % (4-13); Mean Corpuscular HGB 29.3 pg (26.0-34.0); Mean Corpuscular HGB Conc 31.7 g/dL (31.5-36.5); Mean Corpuscular Volume 92 fL (80-100); Mean Platelet Volume 9.5 fL (9.1-12.4); NEUTROPHILS ABSOLUTE AUTO 5.86 K/mm3 (1.96-9.15); NEUTROPHILS PERCENT AUTO 64 % (41-73); Platelet Count 336 K/mm3 (150-400); RDW Coefficient Variation 15.1 % (11.7-14.2); RDW Standard Deviation 51.6 fL (35.1-46.3); Red Blood Cell Count 3.76 M/mm3 (3.80-5.20); White Blood Cell Count 9.18 K/mm3 (4.00-11.30)
[2020-11-25 11:17] LABS: Source, Urine Clean Catch
[2020-11-25 11:24] LABS: Alanine Aminotransfer (ALT/SGP 21 U/L (12-78); Albumin, Blood 3.8 g/dL (3.4-5.0); Albumin/Globulin Ratio 1.1 (0.8-1.8); Alk Phos 45 U/L (50-136); Anion Gap 10 mmol/L (6-16); Aspartate Aminotrans (AST/SGOT 11 U/L (12-37); Bilirubin, Total 0.3 mg/dL (0.1-1.0); Blood Urea Nitrogen 21 mg/dL (8-24); Bun/Creatinine Ratio 37.6 (12.0-20.0); CO2, Blood 24 mmol/L (21-32); Calcium, Blood 9.7 mg/dL (8.5-10.1); Chloride, Blood 108 mmol/L (98-108); Creatinine, Blood 0.56 mg/dL (0.40-1.00); Globulin, Blood 3.4 g/dL (2.2-4.0); Glomerular Filtration Rate >60 (60-); Glucose, Blood 144 mg/dL (70-99); Potassium, Blood 3.9 mmol/L (3.5-5.5); Sodium, Blood 142 mmol/L (136-145); Total Protein, Blood 7.2 g/dL (6.4-8.2)
[2020-11-25 11:32] LABS: Appearance, Urine Clear (Clear); Bilirubin, Urine Neg (Neg); Blood, Urine Neg (Neg); Color, Urine Yellow (P-Yellow); Glucose Qualitative, Urine Neg (Neg); Ketones, Urine Neg (Neg); Leukocyte Esterase, Urine Neg (Neg); Nitrite, Urine Neg (Neg); Protein, Urine Neg (Neg); Urobilinogen, Urine NORM (Normal)
[2020-11-25] MEDS ORDERED: Norco 5-325 Ta1 EACH PO (13:21)
== END 2020-11-25 13:29 | disposition home or self-care (01) ==
LOC: ER 09:21
PROVIDERS: Emergency Medicine
DX: M25.512 Pain in left shoulder (principal); F03.91 Unspecified dementia, unspecified severity, with behavioral disturbance; E11.9 Type 2 diabetes mellitus without complications; I10 Essential (primary) hypertension; K21.9 Gastro-esophageal reflux disease without esophagitis; E78.5 Hyperlipidemia, unspecified; Z79.82 Long term (current) use of aspirin; Z79.4 Long term (current) use of insulin; Z79.899 Other long term (current) drug therapy; Z91.030 Bee allergy status; Z91.018 Allergy to other foods; Z86.73 Personal history of transient ischemic attack (TIA), and cerebral infarction without residual deficits; Z87.891 Personal history of nicotine dependence
CPT/HCPCS: 36415; 80053; 81003; 85025; 93005; 93010; 99285-25; A9270

== ENCOUNTER 2020-12-29 10:22 | Emergency (ER) | payer MEDICARE, OTHER ==
[~2020-12-29] VITALS: Ht 167.6 cm; Wt 72.6 kg
[~2020-12-29 10:22] MED LIST changes: +Norco 5-325 Ta1 EACH PO
[2020-12-29 10:41] LABS: Source, Urine Voided
[2020-12-29 10:47] LABS: Bilirubin, Urine Neg (Neg); Blood, Urine 1+ (Neg); Glucose Qualitative, Urine 2+ (Neg); Ketones, Urine Neg (Neg); Leukocyte Esterase, Urine Neg (Neg); Nitrite, Urine Pos (Neg); Protein, Urine Neg (Neg); Urobilinogen, Urine NORM (Normal)
[2020-12-29 10:47] LABS: BASOPHILS ABSOLUTE AUTO 0.02 K/mm3 (0.00-0.23); BASOPHILS PERCENT AUTO 0 % (0-2); EOSINOPHILS ABSOLUTE AUTO 0.03 K/mm3 (0.00-0.68); EOSINOPHILS PERCENT AUTO 0 % (0-6); Hematocrit 32.3 % (33.0-51.0); Hemoglobin 10.6 g/dL (11.5-16.0); IMMATURE GRAN ABSOLUTE AUTO 0.02 K/mm3 (0.00-0.10); IMMATURE GRAN PERCENT AUTO 0 % (0-1); LYMPHOCYTES ABSOLUTE AUTO 1.44 K/mm3 (0.84-5.20); LYMPHOCYTES PERCENT AUTO 19 % (21-46); MONOCYTES ABSOLUTE AUTO 0.39 K/mm3 (0.16-1.47); MONOCYTES PERCENT AUTO 5 % (4-13); Mean Corpuscular HGB 29.3 pg (26.0-34.0); Mean Corpuscular HGB Conc 32.8 g/dL (31.5-36.5); Mean Corpuscular Volume 89 fL (80-100); Mean Platelet Volume 9.3 fL (9.1-12.4); NEUTROPHILS ABSOLUTE AUTO 5.67 K/mm3 (1.96-9.15); NEUTROPHILS PERCENT AUTO 75 % (41-73); Platelet Count 274 K/mm3 (150-400); RDW Coefficient Variation 13.4 % (11.7-14.2); RDW Standard Deviation 44.6 fL (35.1-46.3); Red Blood Cell Count 3.62 M/mm3 (3.80-5.20); White Blood Cell Count 7.57 K/mm3 (4.00-11.30)
[2020-12-29] MEDS ORDERED: METF500C PO (10:59)
[2020-12-29] MEDS ORDERED: QUET25 PO (10:59)
[2020-12-29 11:07] LABS: Alanine Aminotransfer (ALT/SGP 42 U/L (12-78); Albumin, Blood 3.5 g/dL (3.4-5.0); Albumin/Globulin Ratio 1.1 (0.8-1.8); Alk Phos 55 U/L (50-136); Anion Gap 6 mmol/L (6-16); Aspartate Aminotrans (AST/SGOT 39 U/L (12-37); Bilirubin, Total 0.4 mg/dL (0.1-1.0); Blood Urea Nitrogen 19 mg/dL (8-24); Bun/Creatinine Ratio 36.5 (12.0-20.0); CO2, Blood 25 mmol/L (21-32); Calcium, Blood 8.9 mg/dL (8.5-10.1); Chloride, Blood 108 mmol/L (98-108); Creatinine, Blood 0.52 mg/dL (0.40-1.00); Globulin, Blood 3.2 g/dL (2.2-4.0); Glomerular Filtration Rate >60 (60-); Glucose, Blood 177 mg/dL (70-99); Potassium, Blood 3.6 mmol/L (3.5-5.5); Sodium, Blood 139 mmol/L (136-145); Total Protein, Blood 6.7 g/dL (6.4-8.2); Troponin I <0.015 ng/mL (0.000-0.040)
[2020-12-29 11:08] LABS: Appearance, Urine Hazy (Clear)
[2020-12-29 11:12] LABS: Bacteria Many /hpf; Red Blood Cells, Urine 0-2 /hpf (0-2); Squamous Epithelial Cells Mod /hpf (Few)
[2020-12-29 11:16] LABS: Color, Urine Pale Yellow (P-Yellow)
[2020-12-29] MEDS ORDERED: Macrobid 100 M100 MG PO (14:38)
== END 2020-12-29 15:06 | disposition home or self-care (01) ==
LOC: ER 10:22
PROVIDERS: Emergency Medicine
DX: S22.42XA Multiple fractures of ribs, left side, initial encounter for closed fracture (principal); E11.9 Type 2 diabetes mellitus without complications; I10 Essential (primary) hypertension; K21.9 Gastro-esophageal reflux disease without esophagitis; N39.0 Urinary tract infection, site not specified; Z86.73 Personal history of transient ischemic attack (TIA), and cerebral infarction without residual deficits; Z91.030 Bee allergy status; Z91.018 Allergy to other foods; Z87.891 Personal history of nicotine dependence; W01.0XXA Fall on same level from slipping, tripping and stumbling without subsequent striking against object, initial encounter
CPT/HCPCS: 70450; 71101; 72125; 73030; 80053; 81001; 84484; 85025; 87077; 87086; 87186; 93005; 93010; 96374; 96375; 99284-25; A9270; J2060; J2270; J2405

== ENCOUNTER 2021-01-02 11:10 | Emergency (ER) | payer MEDICARE, OTHER ==
[~2021-01-02] VITALS: Ht 167.6 cm; Wt 72.6 kg
[~2021-01-02 11:10] MED LIST changes: +METF500C PO; +Macrobid 100 M100 MG PO
[2021-01-02] MEDS ORDERED: HYDR1TAB94 PO (11:22)
[2021-01-02] MEDS ORDERED: MELO7.5 PO (11:23)
[2021-01-02] MEDS ORDERED: TRAZ50 PO (11:31)
[2021-01-02 11:35] LABS: Source, Urine Voided
[2021-01-02 11:41] LABS: Bilirubin, Urine Neg (Neg); Blood, Urine 1+ (Neg); Glucose Qualitative, Urine 4+ (Neg); Ketones, Urine Neg (Neg); Leukocyte Esterase, Urine Neg (Neg); Nitrite, Urine Neg (Neg); Protein, Urine Neg (Neg); Specific Gravity, Urine 1.015 (1.003-1.022); Urobilinogen, Urine NORM (Normal)
[2021-01-02 11:48] LABS: Appearance, Urine Clear (Clear); Color, Urine Yellow (P-Yellow)
[2021-01-02 11:50] LABS: Bacteria Few /hpf; Red Blood Cells, Urine 0-2 /hpf (0-2); Squamous Epithelial Cells Mod /hpf (Few); White Blood Cells, Urine 0-2 /hpf (0-5)
== END 2021-01-02 13:58 | disposition home or self-care (01) ==
LOC: ER 11:10
PROVIDERS: Emergency Medicine
DX: S02.2XXA Fracture of nasal bones, initial encounter for closed fracture (principal); E11.9 Type 2 diabetes mellitus without complications; I10 Essential (primary) hypertension; K21.9 Gastro-esophageal reflux disease without esophagitis; E78.5 Hyperlipidemia, unspecified; Z79.899 Other long term (current) drug therapy; Z79.82 Long term (current) use of aspirin; Z79.84 Long term (current) use of oral hypoglycemic drugs; Z91.018 Allergy to other foods; Z91.030 Bee allergy status; Z86.73 Personal history of transient ischemic attack (TIA), and cerebral infarction without residual deficits; Z87.891 Personal history of nicotine dependence; W18.30XA Fall on same level, unspecified, initial encounter
CPT/HCPCS: 70450; 70486; 72125; 81001; 96374; 96375; 99283-25; J1885; J2270; J2405

== ENCOUNTER 2021-01-04 00:19 | Emergency (ER) | payer MEDICARE, OTHER ==
[~2021-01-04] VITALS: Ht 165.1 cm; Wt 79.4 kg
[~2021-01-04 00:19] MED LIST changes: +MELO7.5 PO; +TRAZ50 PO
== END 2021-01-04 03:36 | disposition home or self-care (01) ==
LOC: ER 00:19
DX: S00.33XA Contusion of nose, initial encounter (principal); R04.0 Epistaxis; E11.9 Type 2 diabetes mellitus without complications; I10 Essential (primary) hypertension; K21.9 Gastro-esophageal reflux disease without esophagitis; E78.5 Hyperlipidemia, unspecified; Z91.030 Bee allergy status; Z79.82 Long term (current) use of aspirin; Z79.899 Other long term (current) drug therapy; Z86.73 Personal history of transient ischemic attack (TIA), and cerebral infarction without residual deficits; Z87.891 Personal history of nicotine dependence; W06.XXXA Fall from bed, initial encounter
CPT/HCPCS: 70450; 70486; 72125; 72170; 96372; 99284-25; J2270

== ENCOUNTER 2021-01-09 20:29 | Emergency (ER) | payer MEDICARE, OTHER ==
[~2021-01-09] VITALS: Ht 175.3 cm; Wt 74.8 kg
[2021-01-09 23:43] LABS: Source, Urine Catheter
[2021-01-09 23:45] LABS: Bilirubin, Urine Neg (Neg); Blood, Urine 2+ (Neg); Glucose Qualitative, Urine 4+ (Neg); Ketones, Urine Neg (Neg); Leukocyte Esterase, Urine Neg (Neg); Nitrite, Urine Neg (Neg); Protein, Urine Neg (Neg); Urobilinogen, Urine NORM (Normal)
[2021-01-09 23:46] LABS: Appearance, Urine Clear (Clear); Color, Urine Yellow (P-Yellow)
[2021-01-09 23:56] LABS: Bacteria Not Seen /hpf; Red Blood Cells, Urine 0-2 /hpf (0-2); Squamous Epithelial Cells Not Seen /hpf (Few); White Blood Cells, Urine Not Seen /hpf (0-5)
== END 2021-01-10 05:51 | disposition home or self-care (01) ==
LOC: ER 20:29
PROVIDERS: Emergency Medicine
DX: S00.83XA Contusion of other part of head, initial encounter (principal); S22.32XA Fracture of one rib, left side, initial encounter for closed fracture; S05.11XA Contusion of eyeball and orbital tissues, right eye, initial encounter; S05.12XA Contusion of eyeball and orbital tissues, left eye, initial encounter; S80.01XA Contusion of right knee, initial encounter; T14.8XXA Other injury of unspecified body region, initial encounter; R22.0 Localized swelling, mass and lump, head; M25.512 Pain in left shoulder; E04.1 Nontoxic single thyroid nodule; R29.6 Repeated falls; Z91.81 History of falling; G30.0 Alzheimer's disease with early onset; F02.80 Dementia in other diseases classified elsewhere, unspecified severity, without behavioral disturbance, psychotic disturbance, mood disturbance, and anxiety; E11.9 Type 2 diabetes mellitus without complications; I10 Essential (primary) hypertension; E78.5 Hyperlipidemia, unspecified; K21.9 Gastro-esophageal reflux disease without esophagitis; Z79.84 Long term (current) use of oral hypoglycemic drugs; Z79.82 Long term (current) use of aspirin; Z79.899 Other long term (current) drug therapy; Z91.030 Bee allergy status; Z86.73 Personal history of transient ischemic attack (TIA), and cerebral infarction without residual deficits; Z87.891 Personal history of nicotine dependence; Z87.81 Personal history of (healed) traumatic fracture; W18.30XA Fall on same level, unspecified, initial encounter
CPT/HCPCS: 36415; 51701; 70450; 72125; 73030; 81001; 96361-59; 96372-59; 96374-59; 96375; 96375-59; 99152; 99284-25; J1200; J1630; J2060; J3010; J7030

== ENCOUNTER 2021-01-17 20:40 | Emergency (ER) | payer MEDICARE, OTHER ==
[~2021-01-17] VITALS: Ht 167.6 cm; Wt 77.1 kg
[2021-01-17 22:12] LABS: BASOPHILS ABSOLUTE AUTO 0.03 K/mm3 (0.00-0.23); BASOPHILS PERCENT AUTO 0 % (0-2); EOSINOPHILS ABSOLUTE AUTO 0.16 K/mm3 (0.00-0.68); EOSINOPHILS PERCENT AUTO 2 % (0-6); Hematocrit 31.9 % (33.0-51.0); Hemoglobin 10.4 g/dL (11.5-16.0); IMMATURE GRAN ABSOLUTE AUTO 0.02 K/mm3 (0.00-0.10); IMMATURE GRAN PERCENT AUTO 0 % (0-1); LYMPHOCYTES ABSOLUTE AUTO 2.22 K/mm3 (0.84-5.20); LYMPHOCYTES PERCENT AUTO 27 % (21-46); MONOCYTES ABSOLUTE AUTO 0.47 K/mm3 (0.16-1.47); MONOCYTES PERCENT AUTO 6 % (4-13); Mean Corpuscular HGB 28.5 pg (26.0-34.0); Mean Corpuscular HGB Conc 32.6 g/dL (31.5-36.5); Mean Corpuscular Volume 87 fL (80-100); Mean Platelet Volume 8.9 fL (9.1-12.4); NEUTROPHILS ABSOLUTE AUTO 5.45 K/mm3 (1.96-9.15); NEUTROPHILS PERCENT AUTO 65 % (41-73); Platelet Count 358 K/mm3 (150-400); RDW Coefficient Variation 13.5 % (11.7-14.2); RDW Standard Deviation 43.1 fL (35.1-46.3); Red Blood Cell Count 3.65 M/mm3 (3.80-5.20); White Blood Cell Count 8.35 K/mm3 (4.00-11.30)
[2021-01-17 22:34] LABS: Alanine Aminotransfer (ALT/SGP 35 U/L (12-78); Albumin, Blood 3.3 g/dL (3.4-5.0); Alk Phos 113 U/L (50-136); Anion Gap 8 mmol/L (6-16); Aspartate Aminotrans (AST/SGOT 11 U/L (12-37); Bilirubin, Total 0.2 mg/dL (0.1-1.0); Blood Urea Nitrogen 19 mg/dL (8-24); Bun/Creatinine Ratio 31.7 (12.0-20.0); CO2, Blood 27 mmol/L (21-32); Chloride, Blood 102 mmol/L (98-108); Globulin, Blood 3.3 g/dL (2.2-4.0); Glomerular Filtration Rate >60 (60-); Glucose, Blood 275 mg/dL (70-99); Sodium, Blood 137 mmol/L (136-145); Total Protein, Blood 6.6 g/dL (6.4-8.2); Troponin I <0.015 ng/mL (0.000-0.040)
[2021-01-17] MEDS ORDERED: Voltaren100 GM TOP (22:54)
== END 2021-01-17 23:50 | disposition home or self-care (01) ==
LOC: ER 20:40
PROVIDERS: Physician Assistant
DX: R07.9 Chest pain, unspecified (principal); M25.512 Pain in left shoulder; G89.29 Other chronic pain; Z79.82 Long term (current) use of aspirin; Z79.899 Other long term (current) drug therapy; Z91.018 Allergy to other foods; Z91.030 Bee allergy status
CPT/HCPCS: 36415; 71045; 80053; 84484; 85025; 93005; 93010; 99285-25; A9270

== ENCOUNTER 2021-02-17 22:46 | Emergency (ER) | payer MEDICARE ==
[~2021-02-17] VITALS: Ht 165.1 cm; Wt 72.6 kg
[~2021-02-17 22:46] MED LIST changes: +Voltaren100 GM TOP
[2021-02-17 23:52] LABS: BASOPHILS ABSOLUTE AUTO 0.02 K/mm3 (0.00-0.23); BASOPHILS PERCENT AUTO 0 % (0-2); EOSINOPHILS ABSOLUTE AUTO 0.06 K/mm3 (0.00-0.68); EOSINOPHILS PERCENT AUTO 1 % (0-6); Hemoglobin 9.7 g/dL (11.5-16.0); IMMATURE GRAN ABSOLUTE AUTO 0.01 K/mm3 (0.00-0.10); IMMATURE GRAN PERCENT AUTO 0 % (0-1); LYMPHOCYTES ABSOLUTE AUTO 1.57 K/mm3 (0.84-5.20); LYMPHOCYTES PERCENT AUTO 28 % (21-46); MONOCYTES ABSOLUTE AUTO 0.38 K/mm3 (0.16-1.47); MONOCYTES PERCENT AUTO 7 % (4-13); Mean Corpuscular HGB 28.8 pg (26.0-34.0); Mean Corpuscular HGB Conc 32.3 g/dL (31.5-36.5); Mean Corpuscular Volume 89 fL (80-100); NEUTROPHILS ABSOLUTE AUTO 3.54 K/mm3 (1.96-9.15); NEUTROPHILS PERCENT AUTO 63 % (41-73); Platelet Count 267 K/mm3 (150-400); RDW Coefficient Variation 14.2 % (11.7-14.2); RDW Standard Deviation 45.8 fL (35.1-46.3); Red Blood Cell Count 3.37 M/mm3 (3.80-5.20); White Blood Cell Count 5.58 K/mm3 (4.00-11.30)
[2021-02-18 00:11] LABS: Alanine Aminotransfer (ALT/SGP 19 U/L (12-78); Albumin, Blood 3.4 g/dL (3.4-5.0); Albumin/Globulin Ratio 1.2 (0.8-1.8); Alk Phos 87 U/L (50-136); Anion Gap 6 mmol/L (6-16); Aspartate Aminotrans (AST/SGOT 10 U/L (12-37); Bilirubin, Total 0.4 mg/dL (0.1-1.0); Blood Urea Nitrogen 24 mg/dL (8-24); Bun/Creatinine Ratio 43.7 (12.0-20.0); CO2, Blood 25 mmol/L (21-32); Calcium, Blood 8.6 mg/dL (8.5-10.1); Chloride, Blood 108 mmol/L (98-108); Creatinine, Blood 0.55 mg/dL (0.40-1.00); Globulin, Blood 2.8 g/dL (2.2-4.0); Glomerular Filtration Rate >60 (60-); Glucose, Blood 159 mg/dL (70-99); Potassium, Blood 3.6 mmol/L (3.5-5.5); Sodium, Blood 139 mmol/L (136-145); Total Protein, Blood 6.2 g/dL (6.4-8.2); Troponin I <0.015 ng/mL (0.000-0.040)
== END 2021-02-18 02:46 | disposition home or self-care (01) ==
LOC: ER 22:46
PROVIDERS: Emergency Medicine
DX: R07.89 Other chest pain (principal); E11.9 Type 2 diabetes mellitus without complications; Z91.018 Allergy to other foods; I10 Essential (primary) hypertension; Z91.030 Bee allergy status; Z79.84 Long term (current) use of oral hypoglycemic drugs; Z79.899 Other long term (current) drug therapy; Z87.891 Personal history of nicotine dependence; W18.30XA Fall on same level, unspecified, initial encounter
CPT/HCPCS: 70450; 71250; 72125; 72170; 80053; 84484; 85025; 93005; 93010; 99285-25

== ENCOUNTER 2021-02-18 11:55 | Emergency (ER) | payer MEDICARE ==
[~2021-02-18] VITALS: Ht 167.6 cm; Wt 64.4 kg
== END 2021-02-18 13:12 | disposition home or self-care (01) ==
LOC: ER 11:55
DX: S06.5X9A Traumatic subdural hemorrhage with loss of consciousness of unspecified duration, initial encounter (principal); E11.9 Type 2 diabetes mellitus without complications; I10 Essential (primary) hypertension; Z91.030 Bee allergy status; Z91.018 Allergy to other foods; Z79.899 Other long term (current) drug therapy; Z86.73 Personal history of transient ischemic attack (TIA), and cerebral infarction without residual deficits; Z87.891 Personal history of nicotine dependence; W18.30XA Fall on same level, unspecified, initial encounter
CPT/HCPCS: 70450; 99283-25